=== PATIENT | female | born 1985 | race Caucasian/White ===

== ENCOUNTER 2020-11-29 19:24 | Emergency (ER) | payer OTHER ==
[2020-11-29 21:30] LABS: BASOPHIL 0.4 % (0-2); EOSINOPHIL 0.3 % (0-5); HCT 44.4 % (37.0-47.0); HGB 14.7 g/dl (12.5-16.0); LYMPHOCYTE 10.5 % (15-48); MCH 29.7 pg (25.0-31.0); MCHC 33.1 g/dL (32.0-36.0); MCV 89.7 fL (78.0-100.0); MONOCYTE 6.3 % (0-12); MPV 10.4 fL (6.0-9.5); NEUTROPHIL 82.1 % (41-80); NRBC 0; PLT 239 K/uL (150-400); RBC 4.95 M/uL (4.20-5.40); RDW 13.1 % (11.5-14.0)
[2020-11-29 21:41] LABS: BILIRUBIN NEGATIVE (NEGATIVE); BLOOD NEGATIVE Ery/uL (NEGATIVE); CLARITY CLEAR (CLEAR); COLOR YELLOW (YELLOW); GLUCOSE (U) NORMAL (NORMAL); LEUKOCYTES NEGATIVE Leu/uL (NEGATIVE); NITRITE NEGATIVE (NEGATIVE); PROTEIN NEGATIVE (NEGATIVE); SPECIFIC GRAVITY 1.015 (1.001-1.030); UROBILINOGEN 0.2 mg/dL (0.2-1.0); pH 6.5 (5.0-9.0)
[2020-11-29 21:49] LABS: BUN/CREAT RATIO (CALC) 21.9 RATIO; CREATININE 0.64 mg/dL (0.51-0.95); POTASSIUM 3.5 mmol/L (3.5-5.1)
== END 2020-11-29 23:28 | disposition home or self-care (01) ==
LOC: FER 19:24
PROVIDERS: Nurse Practitioner Family
DX: R55 Syncope and collapse (principal); S80.12XA Contusion of left lower leg, initial encounter; Z20.822 Contact with and (suspected) exposure to COVID-19; X58.XXXA Exposure to other specified factors, initial encounter
CPT/HCPCS: 36415; 71045; 80048; 81003; 85025; 87880; 93005; 93971; J7030; U0002